=== PATIENT | male | born 1965 | race Caucasian/White ===

== ENCOUNTER 2017-06-27 14:36 | Emergency (ER) | payer MEDICARE, OTHER ==
[2017-06-27 14:47] VITALS: BP 135/81
--- NOTE | 2017-06-27 15:07 | ERNOTE ---
Back Pain ER HPI Date of Service: 06/27/17 Presenting Symptoms: injury/pain to back Time Seen by Provider: 06/27/17 14:50 Source: patient, RN notes reviewed, past records Exam Limitations: no limitations Immunizations: IMMUNIZATION HX Immunizations Up to Date Yes History of Influenza Vaccine No Hx Pneumococcal Vaccination No Allergies/Adverse Reactions: Allergies No Known Allergies Allergy (Verified 06/27/17 14:54) Home Medications: HOME MEDICATIONS Cyclobenzaprine HCl [Flexeril] 10 mg PO TID PRN #12 tab 06/27/17 [Last Taken Unknown] oxyCODONE HCL/ACETAMINOPHEN [Oxycodone-Acetaminophen 5-325] 1 - 2 each PO Q6H PRN #16 tablet 06/27/17 [Last Taken Unknown] Narrative: 51 year old male presents to the ED needing pain medication. He has had neck pain for several years. He had an abnormal MRI last Fall and was referred to a charge master specialist at that time. He reports he "chickened out" and did not go see the specialist. His pain has recently worsened. He has an appointment with a charge master specialist tomorrow but reports needing something for pain to get him by until then. Timing: Reports: constant, getting worse Quality/Severity: Reports: severe, aching Location of pain: Reports: upper back - Neck, other - radiates to right arm Activities at Onset: Reports: none Recent Injury?: Reports: no Associated Symptoms: Reports: sweating. Denies: fever/chills, nausea/vomiting, problems urinating, difficulty walking, lightheadedness, numbess/weakness in legs Prior Treament: Denies: recently seen Review of Systems - Review of Systems Constitutional: Absent: recent illness, fever, chills EYE: Present: no symptoms reported ENT: Present: no symptoms reported Respiratory: Absent: shortness of breath, cough Cardiology: Absent: chest pain, edema Gastrointestinal/Abdominal: Absent: nausea, vomiting, abdominal pain Genitourinary: Present: no symptoms reported Musculoskeletal: Present: muscle pain, muscle stiffness, neck pain. Absent: joint pain, joint swelling Skin: Present: lumps. Absent: rash, lesions, change in color Neurological: Present: tingling. Absent: headache, dizziness/light-headedness, weakness, numbness Endocrine: Present: no symptoms reported Hematologic/Lymphatic: Present: no symptoms reported Psych: Present: no symptoms reported - Patient's Past Medical History Patient History - Medical: Chronic Pain, Other Patient History - Cardiac/Respiratory: COPD Patient History - Cancer: No Hx of Cancer Patient History - Surgical Procedures: Colonoscopy, Other Patient History - Other: None - Social History Living Situations: home Abuse History: No History of abuse Psych History: No pertinent hx Smoking Status: Current every day smoker Have you smoked in the past 12 months: Yes Alcohol Use: occasionally Drug Use: none - Immunizations Immunizations Up to Date: Yes Hx Pneumococcal Vaccination: No History of Influenza Vaccine: No Physical Exam - Physical Exam General Appearance: Present: wd/wn, alert, mild distress - appears uncomfortable Head Exam: Present: normal inspection, no evidence of injury Neck: Present: supple, limited range of motion, tender lateral - Right lower cervical region Respiratory: Present: no respiratory distress, normal breath sounds, no accessory muscle use, lungs clear Cardiovascular/Chest: Present: regular rate, rhythm, no murmur, normal peripheral pulses Extremity Exam: Present: normal inspection, normal range of motion, no edema Neurological Exam: Present: alert, oriented, normal mood/affect, no motor/ sensory deficits Skin Exam: Present: normal color, warm/dry ED Progress - Vital Signs Patient's Vital Signs:: I have reviewed the patient's vital signs. Vital Signs: Vital Signs 06/27/17 14:41 Temperature 36.7 C Pulse Rate 75 Respiratory 16 Rate Blood Pressure 135/81 O2 Sat by Pulse 97 Oximetry - Progress/Reassessment Chief Complaint: Back Pain Progress:: Unchanged Departure Clinical Impression: Cervical spine pain - Departure Disposition: Home Follow Up Needed Condition: Good Instructions: Cervical Radiculopathy, [id number] Additional Instructions: See your back specialist tomorrow as scheduled Referrals: Ernie Jeronimo MD [Primary Care Provider] - Prescriptions: Cyclobenzaprine HCl [Flexeril] 10 mg PO TID PRN #12 tab PRN Reason: MUSCLE SPASMS oxyCODONE HCL/ACETAMINOPHEN [Oxycodone-Acetaminophen 5-325] 1 - 2 each PO Q6H PRN #16 tablet PRN Reason: Pain
== END 2017-06-27 15:10 | disposition home or self-care (01) ==
LOC: ER 14:36
DX: M54.2 Cervicalgia (principal); F17.200 Nicotine dependence, unspecified, uncomplicated; G89.29 Other chronic pain